=== PATIENT | female | born 2000 ===

== ENCOUNTER → 2024-05-17 | Outpatient (CLI) | payer OTHER | LOC: MHCPAIN 09:22 | DX: M54.16 Radiculopathy, lumbar region (principal); M51.36 Other intervertebral disc degeneration, lumbar region | CPT/HCPCS: G0463 ==

== ENCOUNTER → 2024-06-13 | Outpatient (CLI) | payer OTHER ==
[~2024-06-13] MED LIST: Iohexol 300 - 10 ML VIAL ONE; Lidocaine PF 2% (20 MG/ML) 2 ML VIAL ONE
== END ==
LOC: MHCPAIN 14:39
DX: M54.16 Radiculopathy, lumbar region (principal)
CPT/HCPCS: J1100; Q9967

== ENCOUNTER → 2024-08-11 | Outpatient (CLI) | payer OTHER | LOC: MHCPAIN 11:17 | DX: M54.16 Radiculopathy, lumbar region (principal) | CPT/HCPCS: J1010; Q9967 ==